=== PATIENT | female | born 1930 | race Caucasian/White ===

== ENCOUNTER 2017-01-27 17:13 | Observation (INO) | payer MEDICARE, BC ==
[2017-01-27] MEDS ORDERED: ACETAMINOPHEN 500 MG TABLET ONE (17:55)
--- NOTE | 2017-01-27 18:20 | RAD ---
History: Left-sided chest pain after ground-level fall. Comparison: None. Technique: 2 views Findings: There is evidence of significant left glenohumeral degenerative changes noted. A marked S-shaped thoracolumbar scoliotic deformity is present. The heart size is appropriate. There is left basilar atelectasis or scarring suggested. No effusion or pneumothorax is seen. Impression: 1. No definitive fracture visualized. 2. A marked S-shaped thoracolumbar scoliotic deformity. 3. Left basilar atelectasis or scarring. 4. Prominent left glenohumeral degenerative changes.
[2017-01-27] MEDS ORDERED: SODIUM CHLORIDE 0.9% 100 ML IV PRN (21:50)
[2017-01-27] MEDS ORDERED: ACETAMINOPHEN 325 MG TABLET PO PRN (21:50)
[2017-01-27] MEDS ORDERED: MENTHOL/CETYLPYRD 1 EACH LOZENGE PO PRN (21:50)
[2017-01-27] MEDS ORDERED: MAGNESIUM HYDROXIDE 30 ML UDCUP PO PRN (21:50)
[2017-01-27] MEDS ORDERED: BLISTEX LIPSTICK 1 EACH TP PRN (21:50)
[2017-01-27 22:36] VITALS: BMI 21.2
[2017-01-27] MEDS ORDERED: PNEUMOCOCCAL 23-VAL P-SAC VAC 0.5 ML VIAL IM V ONE (23:35)
[2017-01-28 02:24] LABS: SPECIFIC GRAVITY 1.015 (1.001-1.030); URINE APPEARANCE CLEAR; URINE BILIRUBIN NEGATIVE (NEGATIVE); URINE BLOOD NEGATIVE (NEGATIVE); URINE COLOR AMBER; URINE GLUCOSE (UA) NEGATIVE (NEGATIVE); URINE LEUKOCYTE ESTERASE TRACE (NEGATIVE); URINE NITRITE NEGATIVE (NEGATIVE); URINE PROTEIN 1+ (NEGATIVE); URINE UROBILINOGEN 1 mg/dL (0-1 mg/dl)
[2017-01-28 02:38] LABS: URINE BACTERIA 0; URINE RBC 0-1 /hpf
[2017-01-28 07:05] LABS: ABSOLUTE NEUTROPHIL COUNT 4.7 K/mm3 (1.8-7.7); BASO % 0.4 % (0.2-1.0); EOS # 0.2 (0.0-0.5); EOS % 2.6 % (0.9-2.9); HEMATOCRIT 34.1 % (37.0-47.0); HEMOGLOBIN 11.1 gm/l (12.0-16.0); IMM NEUT% 0.4 % (0-1); LYMPH # 1.9 (1.0-4.8); LYMPH % 24.7 % (15-45); MEAN CELL VOLUME 93.9 fl (81.0-99.0); MEAN CORPUSCULAR HEMOGLOBIN 30.6 pg (27.0-31.0); MEAN CORPUSCULAR HGB CONC 32.6 g/dl (33.0-37.0); MEAN PLATELET VOLUME 10.3 fl (7.4-10.4); MONO # 0.8 (0.0-0.8); MONO % 9.9 % (4-12); PLATELET COUNT 209 K/mm3 (130-400); RED CELL DISTRIBUTION WIDTH 13.1 % (11.5-14.5)
[2017-01-28 07:19] LABS: ALB/GLOB RATIO 1.3 (>1.0); ALBUMIN 3.1 gm/dL (3.5-5.7); CALCIUM 8.6 mg/dL (8.6-10.3)
--- NOTE | 2017-01-28 08:53 | PDOC43 ---
- Subjective Chief Complaint: ground level fall In good spirits, minimal residual left breast pain. c/o chronic loss of balance - Objective Vital Signs Temperature 97.2 F 01/28/17 08:25 Pulse Rate 69 01/28/17 08:25 Respiratory Rate 16 01/28/17 08:25 Blood Pressure 175/72 01/28/17 08:25 O2 Saturation by Pulse Oximetry 96 01/28/17 08:25 Oxygen Delivery Method Room Air Oxygen Flow Rate 0 Intake and Output 01/27/17 01/28/17 01/29/17 06:59 06:59 06:59 Intake Total 355 Output Total 125 Balance 230 General: Alert, Cooperative, No Oriented x3, No Acute Distress HEENT: Mucous membr. moist/pink Lungs: Clear to Auscultation Bilaterally (severe kyphosis and scoliosis) Cardiovascular: Regular Rate and Rhythm, Murmur (2/6 systolic) Abdomen: Soft, Normal Bowel Sounds, No Tenderness, No Masses Extremities: Edema (trace on left only), Pulses Diminished but Palpable Skin: Normal Color Neurological: Normal Speech Psych/Mental Status: Normal Mood Laboratory 01/28/17 05:00 01/28/17 05:00 01/28/17 05:00 RBC 3.63 L MCHC 32.6 L Estimated GFR 95 H Alkaline Phosphatase 25 L Total Protein 5.5 L Albumin 3.1 L Current Medications: Current meds reviewed in EMR. - Problems: Assessment/Plan (1) Fall from ground level Status: AcuteAssessment/Plan: With mild left breast contusion. Chronic loss of balance, OT/PT eval. (2) Gait disturbance Status: ChronicAssessment/Plan: OT/PT consult. TSH normal, B12 pending. (3) Adult failure to thrive syndrome Status: ChronicAssessment/Plan: Dx from clinic records, patient is thin but does not meet criteria for even mild protein malnutrition, BMI and albumin too high. Encourage regular diet. (4) Breast cancer Qualifiers: Breast location: unspecified site of breast Laterality: bilateral Status: ChronicAssessment/Plan: in remission, continue tamoxifen (5) Hearing loss Qualifiers: Hearing loss type: unspecified Laterality: bilateral Qualifier Code : (H91.93) Unspecified hearing loss, bilateral Status: ChronicAssessment/ Plan: stable, has hearing aid and battery container tester at bedside. (6) TISHA (obstructive sleep apnea) Status: ChronicAssessment/Plan: diagnosis from clinic records but no indication of hypoxemia. (7) HTN (hypertension), benign Status: ChronicAssessment/Plan: Dx from clinic records but BP is good for age and does not require treatment. VTE Prophylaxis: not indicated Disposition: Social work and care management working on possible placement.
[2017-01-28] MEDS: DOCUSATE SODIUM 100 MG CAPSULE PO SCH ×2 (10:06→21:37)
--- NOTE | 2017-01-28 12:00 | HP ---
PAM MCKENZIE [id number] DATE OF : 1930 DATE OF ADMISSION: 01/27/2017 IDENTIFICATION: Ms. Mckenzie is an 86-year-old followed by Dr. eHrnandez and last seen in August 2016, although she states that she does not see anyone now. CHIEF COMPLAINT: Ground level fall. HISTORY OF PRESENT ILLNESS: Paramedics were summoned to the patient's house today because she lost her balance and fell striking her left breast on a chair on her way down. She did not strike her head. She did not lose consciousness, but it took her an hour to crawl across the floor to the telephone and call for help. Initially, she just wanted help getting help, but she was talked into coming to the emergency department. Her home was noted to be extremely unkempt and dirty, and was not felt that it was a safe living arrangement. Her evaluation with chest x-ray was normal, but she was referred to observation because it was not felt safe to send her home, and no other placement could be arranged. REVIEW OF SYSTEMS: HEENT: Chronic hearing loss, chronic vision loss in the right eye, and she complains of loss of balance, but denies vertigo. Cardiac: No chest pain, or palpitations. Respiratory: Denies dyspnea, or cough. Gastrointestinal: Denies symptoms. Genitourinary: Denies symptoms. Musculoskeletal: Generalized weakness, and pain in the left breast. Constitutional: Denies fevers, or chills. PAST MEDICAL HISTORY: The patient reports only breast cancer as a medical history, and denies other problems. Clinic records indicate: 1. Adult failure to thrive. 2. History of breast cancer. 3. Disturbance of gait. 4. Hearing loss. 5. Hyperlipidemia. 6. Hypertension. 7. Obstructive sleep apnea. 8. Chronic rhabdomyolysis. 9. Spinal stenosis. 10. Chronic urinary tract infections. PAST SURGICAL HISTORY: 1. She has had three different breast surgeries. 2. Two surgeries for fibroids, and then ultimately a hysterectomy. 3. Right eye surgery for detached retina which was unsuccessful. ALLERGIES: NONE KNOWN. MEDICATIONS: Tamoxifen 20 mg by mouth nightly is the only thing she is currently taking. Clinic records indicate previous prescriptions for: 1. Pantoprazole 40 mg by mouth daily. 2. Losartan 25 mg daily. 3. Pravastatin 20 mg daily. 4. Benadryl. 5. Supplements. HABITS: She was a smoker, but quit 11/18/1957. 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 SOCIAL HISTORY: She is . She lives alone in [place]. She has a niece who lives nearby, and lists friends in [place]. She apparently has a power of social media intern who needs to be consulted before she can be placed in any assisted living, or family psychologist care. Clinic records do not include a POLST form, or advanced directive that I can find. FAMILY HISTORY: Unknown. PHYSICAL EXAMINATION: GENERAL: This is a thin elderly woman. She is pleasant and dismissive of the current concerns. She just states that she prefers to read and play piano over doing housework. VITAL SIGNS: Temperature is 98.3 degrees Fahrenheit. Pulse is 76. Blood pressure is 163/82. Respiratory rate is 18. Oxygen saturation is 94% on room air. HEENT: Right eye deviates externally. Left normal reactive pupil. Normal extraocular movements. Oropharynx is moist. CHEST: Severe kyphosis, and scoliosis. Clear to auscultation. HEART: Regular with 2 to 3/6 systolic murmur. ABDOMEN: Soft and nontender. Normal bowel tones. No organomegaly. BREASTS: Left breast atrophic breast tissue tenderness, but not swelling, or bruising is evident. EXTREMITIES: Trace pitting edema left greater than right, decreased palpable dorsalis pedis pulses. NEUROLOGIC: No focal deficits. LABORATORY DATA: None was done. DIAGNOSTIC IMAGING: Chest x-ray no acute fractures. There is left basilar atelectasis, or scaring. Prominent glenohumeral degenerative changes, and marked scoliosis. ASSESSMENT: Ms. Mckenzie is an 86-year-old with a ground level fall at home, and chronic problems with loss of balance. She has a left breast contusion with some acute pain, but no other acute findings. She does have chronic failure to thrive, and poor living conditions as well as history of breast cancer in remission. PLAN: 1. Refer to observation. 2. We will check CBC, chemistry panel, thyroid and B12 in the morning. 3. Physical therapy and occupational therapy evaluation and treatment. We will request a [facility] mental status examination (UMS) exam by occupational therapy. 4. Care management consultation for possible assisted living placement. 5. Venous thromboembolism risk is low. She does not require prophylaxis. BAYRON/brendan
[2017-01-28] MEDS ORDERED: IV START KIT ONE (17:16)
[2017-01-28] MEDS: TAMOXIFEN CITRATE 10 MG TABLET PO SCH (21:38)
[2017-01-29] MEDS: DOCUSATE SODIUM 100 MG CAPSULE PO SCH ×2 (09:19→21:51)
--- NOTE | 2017-01-29 16:53 | PDOC43 ---
- Subjective Chief Complaint: ground level fall Subjective: Reports Tolerating Diet Well - Objective Vital Signs Temperature 97.7 F 01/29/17 13:00 Pulse Rate 79 01/29/17 13:00 Respiratory Rate 16 01/29/17 13:45 Blood Pressure 170/88 01/29/17 13:00 O2 Saturation by Pulse Oximetry 98 01/29/17 13:00 Oxygen Delivery Method Room Air Oxygen Flow Rate 0 Intake and Output 01/28/17 01/29/17 01/30/17 06:59 06:59 06:59 Intake Total 355 560 280 Output Total 125 800 300 Balance 230 -240 -20 General: Alert, Oriented x3, Cooperative, No Acute Distress HEENT: Mucous membr. moist/pink Lungs: Clear to Auscultation Bilaterally Cardiovascular: Regular Rate and Rhythm Abdomen: Soft, Normal Bowel Sounds, Non-Distended, No Tenderness Extremities: No Edema Skin: Warm, Dry, Intact Laboratory 01/28/17 05:00 01/28/17 05:00 Current Medications: Current meds reviewed in EMR. - Problems: Assessment/Plan (1) Fall from ground level Status: AcuteAssessment/Plan: With mild left breast contusion. Chronic loss of balance, OT/PT eval. appreciated (2) Gait disturbance Status: ChronicAssessment/Plan: OT/PT consult. TSH normal, B12 normal. (3) Adult failure to thrive syndrome Status: ChronicAssessment/Plan: Dx from clinic records, patient is thin but does not meet criteria for even mild protein malnutrition, BMI and albumin too high. Encourage regular diet. (4) Breast cancer Qualifiers: Breast location: unspecified site of breast Laterality: bilateral Status: ChronicAssessment/Plan: in remission, continue tamoxifen (5) Hearing loss Qualifiers: Hearing loss type: unspecified Laterality: bilateral Qualifier Code : (H91.93) Unspecified hearing loss, bilateral Status: ChronicAssessment/ Plan: stable, has hearing aid and bistro server at bedside. (6) TISHA (obstructive sleep apnea) Status: ChronicAssessment/Plan: diagnosis from clinic records but no indication of hypoxemia. (7) HTN (hypertension), benign Status: ChronicAssessment/Plan: Dx from clinic records but BP is good for age and does not require treatment. VTE Prophylaxis: not indicated Disposition: Social work and care management working on possible placement.
[2017-01-29] MEDS: TAMOXIFEN CITRATE 10 MG TABLET PO SCH (21:51)
--- NOTE | 2017-01-30 11:59 | PDOC43 ---
- Subjective Chief Complaint: ground level fall Feeling better. Complains of "balance problem". Subjective: Reports Tolerating Diet Well, Denies Shortness of Breath, Denies Cough, Denies Chest Pain, Denies Abdominal Pain, Denies Nausea, Denies Vomiting , Denies Fever, Denies Chills - Objective Vital Signs Temperature 97.6 F 01/30/17 08:00 Pulse Rate 72 01/30/17 08:00 Respiratory Rate 18 01/30/17 08:00 Blood Pressure 163/92 01/30/17 08:00 O2 Saturation by Pulse Oximetry 95 01/30/17 08:00 Oxygen Delivery Method Room Air Oxygen Flow Rate 0 Intake and Output 01/29/17 01/30/17 01/31/17 06:59 06:59 06:59 Intake Total 560 1580 Output Total 800 1250 Balance -240 330 General: Alert, Oriented x3, Cooperative, No Acute Distress HEENT: Atraumatic Lungs: Clear to Auscultation Bilaterally Cardiovascular: Regular Rate and Rhythm Abdomen: Soft, Normal Bowel Sounds, Non-Distended, No Tenderness Extremities: Normal Pulses, No Edema, No Tenderness Current Medications: Current meds reviewed in EMR. - Problems: Assessment/Plan (1) Fall from ground level Status: AcuteAssessment/Plan: With mild left breast contusion. Chronic loss of balance, con't OT/PT. Recommending higher level of care. (2) Gait disturbance Status: ChronicAssessment/Plan: OT/PT consult. TSH normal, B12 normal. (3) Adult failure to thrive syndrome Status: ChronicAssessment/Plan: Dx from clinic records, patient is thin but does not meet criteria for even mild protein malnutrition, BMI and albumin too high. Encourage regular diet. (4) Breast cancer Qualifiers: Breast location: unspecified site of breast Laterality: bilateral Status: ChronicAssessment/Plan: in remission, continue tamoxifen (5) Hearing loss Qualifiers: Hearing loss type: unspecified Laterality: bilateral Qualifier Code : (H91.93) Unspecified hearing loss, bilateral Status: ChronicAssessment/ Plan: stable, has hearing aid and rv servicer at bedside. (6) TISHA (obstructive sleep apnea) Status: ChronicAssessment/Plan: diagnosis from clinic records but no indication of hypoxemia. (7) HTN (hypertension), benign Status: ChronicAssessment/Plan: Dx from clinic records but BP is good for age and does not require treatment. VTE Prophylaxis: not indicated Disposition: Social work and care management working on possible placement.
[2017-01-30] MEDS: DOCUSATE SODIUM 100 MG CAPSULE PO SCH ×2 (15:21→21:00)
[2017-01-30] MEDS: ACETAMINOPHEN 500 MG TABLET PO PRN (19:06)
[2017-01-30] MEDS: TAMOXIFEN CITRATE 10 MG TABLET PO SCH (20:59)
[2017-01-31] MEDS: DOCUSATE SODIUM 100 MG CAPSULE PO SCH ×2 (08:43→20:17)
--- NOTE | 2017-01-31 13:09 | PDOC43 ---
- Subjective Chief Complaint: ground level fall Patient reports doing ok, walked some with walker. Notes balance difficulty, notes left lateral breast sore from fall. Otherwise, reports doing ok. Staff notes pt with decreased memory. - Objective Vital Signs Temperature 97.4 F 01/31/17 08:00 Pulse Rate 78 01/31/17 08:21 Respiratory Rate 17 01/31/17 08:00 Blood Pressure 166/95 01/31/17 08:21 O2 Saturation by Pulse Oximetry 92 01/31/17 08:00 Oxygen Delivery Method Room Air Oxygen Flow Rate 0 Vital Signs Last 12 Hours Temp Pulse Resp BP Pulse Ox 01/31/17 08:21 78 166/95 01/31/17 08:00 97.4 F 88 17 194/115 92 01/31/17 07:30 16 01/31/17 02:48 20 01/31/17 02:00 98.3 F 80 20 135/83 94 Intake and Output 01/29/17 01/30/17 01/31/17 23:59 23:59 23:59 Intake Total 980 1410 400 Output Total 850 1800 200 Balance 130 -390 200 General: Alert, Cooperative, No Acute Distress HEENT: Atraumatic Lungs: Clear to Auscultation Bilaterally, Normal Air Movement Cardiovascular: Regular Rate and Rhythm, Murmur Abdomen: Soft, Normal Bowel Sounds, Non-Distended Extremities: Other (large corn on R foot, bunions/hammertoes noted.), No Cyanosis, No Edema Skin: Normal Color Neurological: Normal Speech Psych/Mental Status: Other (pleasant.) Laboratory 01/28/17 05:00 01/28/17 05:00 Current Medications: Current meds reviewed in EMR. Active Medications Acetaminophen (Tylenol) 500 mg PO Q4H PRN PRN Reason: Pain or Temperature > 100.5 F Last Admin: 01/30/17 19:06 Dose: 500 mg Benzocaine/Menthol (Cepacol) 1 each PO PRN PRN PRN Reason: Sore Throat Docusate Sodium (Colace) 100 mg PO BID MARIANO Last Admin: 01/31/17 08:43 Dose: 100 mg Sodium Chloride (Sodium Chloride 0.9%) 100 mls @ 25 mls/hr IV PRN PRN PRN Reason: Flush Magnesium Hydroxide (Milk Of Magnesia) 30 ml PO DAILY PRN PRN Reason: Constipation Petrolatum/Paraffin/Mineral Oil (Blistex) 1 each TP PRN PRN PRN Reason: Dry and/or chapped lips Last Admin: 01/31/17 11:47 Dose: 1 each Sodium Chloride (Normal Saline 10ml Flush) 10 - 50 ml IV PRN PRN PRN Reason: IV Flush Sodium Chloride (Normal Saline 10ml Flush) 10 ml IV Q8HR MARIANO Last Admin: 01/31/17 08:43 Dose: 10 ml Tamoxifen Citrate (Nolvadex) 20 mg PO BEDTIME [facility] Last Admin: 01/30/17 20:59 Dose: 20 mg - Problems: Assessment/Plan (1) Fall from ground level Status: AcuteAssessment/Plan: Etiology not clear, With mild left breast contusion, pt reports still sore. Chronic loss of balance, appreciate OT/PT. Recommending higher level of care. (2) Gait disturbance Status: ChronicAssessment/Plan: OT/PT consult appreciated. Etiology not clear, but would have concern for subacute stroke, marylou with elevated BP. (3) Breast cancer Qualifiers: Breast location: unspecified site of breast Laterality: bilateral Status: ChronicAssessment/Plan: in remission, continue tamoxifen (4) HTN (hypertension), benign Status: ChronicAssessment/Plan: Dx from clinic records. BP variable, with some elevation noted, but average is not markedly high. (5) Cochlear implant in place Status: ChronicAssessment/Plan: Unclear role in balance issues. VTE Prophylaxis: not indicated Disposition: Social work and care management working on possible placement, although pt had not been interested in this earlier.
--- NOTE | 2017-01-31 14:56 | CT ---
EXAMINATION: Noncontrast cranial CT. CLINICAL INDICATION: Poor balance. TECHNIQUE: A noncontrast cranial CT scan was obtained. Axial images were acquired from just above the vertex through the skull base. 4 mm stacked axial, coronal, and sagittal reconstructions were reviewed. COMPARISONS: None FINDINGS: Metal artifact from bilateral cochlear implants are noted. This does limit some resolution. Occipital distributions are partially obscured. The CSF containing spaces are prominent throughout. There is diminished attenuation within the periventricular white matter tracts bilaterally. No acute intercranial hemorrhage, mass or mass effect is identified. No extra-axial fluid collections are detected. The visualized segments of the posterior brain and posterior fossa are unremarkable. The cerebellar pontine angle cisterns are symmetric. The osseous structures are intact. The paranasal sinuses are clear. The visualized portions of the orbits are unremarkable. Bilateral cochlear implant wires are noted. Postsurgical changes of the mastoids are evident. IMPRESSION: Bilateral cochlear implants limiting resolution. There is Global diffuse atrophy with microvascular ischemic changes. No acute intracranial abnormalities are identified. The findings were uploaded to the electronic medical record for review at approximately 2:55 PM 01/31/2017
[2017-01-31] MEDS: TAMOXIFEN CITRATE 10 MG TABLET PO SCH (20:17)
[2017-02-01] MEDS: DOCUSATE SODIUM 100 MG CAPSULE PO SCH ×2 (08:51→22:36)
--- NOTE | 2017-02-01 12:15 | PDOC43 ---
- Subjective Chief Complaint: ground level fall No new complaints. - Objective Vital Signs Temperature 98.0 F 02/01/17 08:00 Pulse Rate 82 02/01/17 08:00 Respiratory Rate 17 02/01/17 08:00 Blood Pressure 184/93 02/01/17 08:00 O2 Saturation by Pulse Oximetry 93 02/01/17 08:00 Oxygen Delivery Method Room Air Oxygen Flow Rate 0 Intake and Output 01/31/17 02/01/17 02/02/17 06:59 06:59 06:59 Intake Total 1010 586 Output Total 1250 1250 Balance -240 -664 General: Alert, Oriented x3, Cooperative, No Acute Distress HEENT: Mucous membr. moist/pink Lungs: Clear to Auscultation Bilaterally Cardiovascular: Regular Rate and Rhythm, Murmur (3/6) Abdomen: Soft, Normal Bowel Sounds, No Tenderness, No Masses Extremities: Pulses Diminished but Palpable, No Edema Skin: Normal Color Neurological: Normal Speech Psych/Mental Status: Normal Mood Laboratory 01/28/17 05:00 01/28/17 05:00 Current Medications: Current meds reviewed in EMR. - Problems: Assessment/Plan (1) Fall from ground level Status: AcuteAssessment/Plan: Etiology not clear, With mild left breast contusion, pt reports still sore. Chronic loss of balance, appreciate OT/PT. Recommending higher level of care. (2) Gait disturbance Status: ChronicAssessment/Plan: OT/PT consult appreciated. Etiology not clear, TSH and B12 normal, head CT no stroke (3) Adult failure to thrive syndrome Status: ChronicAssessment/Plan: Dx from clinic records, patient is thin but does not meet criteria for even mild protein malnutrition, BMI and albumin too high. Encourage regular diet. (4) Breast cancer Qualifiers: Breast location: unspecified site of breast Laterality: bilateral Status: ChronicAssessment/Plan: in remission, continue tamoxifen (5) Hearing loss Qualifiers: Hearing loss type: unspecified Laterality: bilateral Qualifier Code : (H91.93) Unspecified hearing loss, bilateral Status: ChronicAssessment/ Plan: stable, bilateral cochlear implants (6) TISHA (obstructive sleep apnea) Status: ChronicAssessment/Plan: diagnosis from clinic records but no indication of hypoxemia. (7) HTN (hypertension), benign Status: ChronicAssessment/Plan: Dx from clinic records. BP variable, with some elevation noted, but average is not markedly high. VTE Prophylaxis: not indicated Disposition: Anticipate SNF tomorrow.
[2017-02-01] MEDS: TAMOXIFEN CITRATE 10 MG TABLET PO SCH (22:35)
[2017-02-02] MEDS: ACETAMINOPHEN 500 MG TABLET PO PRN (03:04)
[2017-02-02 07:33] VITALS: BP 144/86
--- NOTE | 2017-02-02 08:00 | PDOC5 ---
ADMIT DATE: 01/27/17 DISCHARGE DATE: 02/02/17 ADMISSION DIAGNOSES: ground level fall PROCEDURES PERFORMED THIS HOSPITALIZATION: CT head--bilateral cochlear implants , no acute changes CONSULTATIONS: OT/PT--higher level of care recommended HOSPITAL COURSE: This is a 86 year old who fell at home and had a left breast contusion. She was placed in observation and had therapies evaluate. Higher level of care was recommended due to gait disturbance but refused. Patient remained in observation awaiting arrival of out-of-town relatives. She remained medically stable and on 02/02 will be discharged to home. - Exam Vital Signs Temperature 97.6 F 02/02/17 07:32 Pulse Rate 110 02/02/17 07:32 Respiratory Rate 20 02/02/17 07:32 Blood Pressure 144/86 02/02/17 07:32 O2 Saturation by Pulse Oximetry 96 02/02/17 07:32 Oxygen Delivery Method Room Air Oxygen Flow Rate 0 General: Alert, Cooperative, No Acute Distress HEENT: Mucous membr. moist/pink Lungs: Clear to Auscultation Bilaterally Cardiovascular: Regular Rate and Rhythm, Murmur (3/6) Abdomen: Soft, Normal Bowel Sounds, No Tenderness, No Masses Extremities: Pulses Diminished but Palpable, No Edema Skin: Normal Color Neurological: Normal Speech Psych/Mental Status: Normal Mood - Results Laboratory 01/28/17 05:00 01/28/17 05:00 - Problems:Assessment/Plan (1) Fall from ground level Status: AcuteAssessment/Plan: Etiology not clear, With mild left breast contusion, pt reports still sore. Chronic loss of balance, appreciate OT/PT. Recommending higher level of care. (2) Gait disturbance Status: ChronicAssessment/Plan: OT/PT consult appreciated. Etiology not clear, TSH and B12 normal, head CT no stroke (3) Adult failure to thrive syndrome Status: ChronicAssessment/Plan: Dx from clinic records, patient is thin but does not meet criteria for even mild protein malnutrition, BMI and albumin too high. Encourage regular diet. (4) Breast cancer Qualifiers: Breast location: unspecified site of breast Laterality: bilateral Status: ChronicAssessment/Plan: in remission, continue tamoxifen (5) Hearing loss Qualifiers: Hearing loss type: unspecified Laterality: bilateral Qualifier Code : (H91.93) Unspecified hearing loss, bilateral Status: ChronicAssessment/ Plan: stable, bilateral cochlear implants (6) TISHA (obstructive sleep apnea) Status: ChronicAssessment/Plan: diagnosis from clinic records but no indication of hypoxemia. (7) HTN (hypertension), benign Status: ChronicAssessment/Plan: Dx from clinic records. BP variable, with some elevation noted, but average is not markedly high. - Disposition: Disposition: discharge home with [facility] and will need in home caregivers - Discharge Plan Forms: Discharge Instructions Follow-Up: [facility] [Outside] (A referral was faxed for a home health physical therapist, occupational therapist and social media director. They will contact you to schedule appointments.) Andres Hernandez MD [Primary Care Provider] - 02/07/17 3:10 pm Condition: Good Disposition: Home
[2017-02-02] MEDS: DOCUSATE SODIUM 100 MG CAPSULE PO SCH (08:51)
== END 2017-02-02 13:59 | disposition home health service (06) ==
LOC: ED 17:13 → MS 20:35
PROVIDERS: ADMIT Family Medicine; ATTEND Family Medicine
DX: S20.02XA Contusion of left breast, initial encounter (principal); W19.XXXA Unspecified fall, initial encounter; R26.2 Difficulty in walking, not elsewhere classified; R62.7 Adult failure to thrive; H91.93 Unspecified hearing loss, bilateral; G47.33 Obstructive sleep apnea (adult) (pediatric); I10 Essential (primary) hypertension
CPT/HCPCS: 90732; 85025; 80053; 84443; 81001; 82607; 36415; 71020; 70450; 97110 ×2; 97116 ×2; 97530 ×4; 97161; 97535; 97166; 92610 ×2; 99284; 99285; A9270 ×19; G8978; G8979